=== PATIENT | male | born 2000 | race African-American/Black ===

== ENCOUNTER → 2018-10-12 | Outpatient (CLI) | payer BC | LOC: BMCIMAGING 15:11 | PROVIDERS: ATTEND Emergency Medicine | DX: J02.9 Acute pharyngitis, unspecified (principal); R59.1 Generalized enlarged lymph nodes | CPT/HCPCS: 76536-PO ==

== ENCOUNTER 2018-12-03 20:12 | Emergency (ER) | payer BC ==
[2018-12-03] MEDS ORDERED: KETOROLAC 30 MG/1 ML SDV IVP ONE (20:39)
[2018-12-03] MEDS ORDERED: NS 1,000 ML IV ONE ×2 (20:39)
[2018-12-03] MEDS ORDERED: DEXAMETHASONE 10 MG/ML VIAL IVP ONE (20:39)
--- NOTE | 2018-12-03 20:39 | EDPHY ---
H & P Stated Complaint: pt c/o back pain, fever, headache x 2 days Time Seen by Provider: 12/03/18 20:29 HPI/ROS: HPI: This is a 18-year-old male who presents with Chief Complaint: Body aches, fever Location: Body Quality: Aches, fever Duration: 2 3 days Signs and Symptoms: no fever, no nausea, no vomiting, no diarrhea, no urinary symptoms, no chest pain, no shortness of breath, no wheezing, no cough, no sore throat, no neck stiffness, no joint pain, no swollen glands, no ear pain, no rash Timing: Intermittent episodes Severity: [id number] Context: Patient is a student at [employer], presents accompanied by mother at her urging if she flew in from [place], [place] as patient has been "sick often on this entire semester and she is worried about finals next week." Patient complains of subjective fever and generalized body aches for the last 2-3 days. Denies sore throat, neck stiffness. Does complain of a generalized aching headache. 2nd complaint is related to his lower back which he has had problems with since high school, greater than 2 years, when he had a helmet directly impact his lumbar spine. He sees Orthopedics in [place] and had an x-ray performed over spring that "showed inflammation." He has a MRI scheduled when he returns home for the summer. He denies any change in bowel or bladder habits. Denies radiation, weakness, paresthesias. He does report increased pain with flexion and difficulty sitting for long periods of time in order to study. Received influenza vaccine in late 2018. Mom reports that he had viral upper respiratory infection at the beginning of school and bronchitis around [place]. Denies any urinary symptoms. Modifying Factors: [id number] pain medications Comment: ROS: A comprehensive 10 system review of systems is otherwise negative aside from elements mentioned in the history of present illness. MEDICAL/SURGICAL/SOCIAL HISTORY: Medical history: Generally healthy. Does not take any regular medications. Surgical history: Denies Social history: Student at [employer]. Originally from [place], [place]. Denies tobacco, alcohol, drug use. Family history noncontributory. CONSTITUTIONAL: Well-developed, well-nourished, nontoxic-appearing [place] young adult male, awake and alert, no obvious distress HEENT: Atraumatic and normocephalic, PERRL, EOMI. Nares patent; no rhinorrhea; no nasal mucosal edema. Tympanic membranes clear. Oropharynx clear, tonsils no hypertrophy, tonsils no erythema; white exudate noted on left pillar; and moist pink mucosa. Airway patent. No lymphadenopathy. No meningismus. Cardiovascular: Normal S1/S2, regular rate, regular rhythm, without murmur rub or gallop. PULMONARY/CHEST: Symmetrical and nontender. Clear to auscultation bilaterally. Good air movement. No accessory muscle usage. ABDOMEN: Soft, nondistended, nontender, no rebound, no guarding, no peritoneal signs, no masses or organomegaly. No CVAT. BACK: No midline tenderness, bilateral reproducible lumbar paraspinous multiple trigger-point reproducible tenderness; full range of motion of flexion , extension, bilateral rotation but there is mild pain associated. no paraspinous spasm, deep tendon reflexes 2/2, no pain with straight leg raise, No foot drop. Achilles reflexes are equal bilaterally. Able to walk on heels and toes without difficulty. EXTREMITIES: 2/2 pulses, strength 5/5, no deformities, no clubbing, no cyanosis or edema. NEUROLOGICAL: no focal neuro deficits. GCS 15. SKIN: Warm and dry, no erythema. no rash. Good capillary refill. Source: Patient, Family (Mother) Exam Limitations: No limitations - Personal History Current Tetanus Diphtheria and Acellular Pertussis (TDAP): Yes - Medical/Surgical History Hx Asthma: No Hx Chronic Respiratory Disease: No Hx Diabetes: No Hx Cardiac Disease: No Hx Renal Disease: No Hx Cirrhosis: No Hx Alcoholism: No Hx HIV/AIDS: No Hx Splenectomy or Spleen Trauma: No Other PMH: back injury in high school - Social History Smoking Status: Never smoked Constitutional: Initial Vital Signs Temperature (C) 37.2 C 12/03/18 20:16 Heart Rate 91 12/03/18 20:16 Respiratory Rate 18 12/03/18 20:16 Blood Pressure 112/62 12/03/18 20:16 O2 Sat (%) 96 12/03/18 20:16 O2 Delivery Mode Room Air Allergies/Adverse Reactions: No Known Allergies Allergy (Unverified 12/03/18 20:15) Home Medications: Medication Instructions Recorded Advil 12/03/18 Cyclobenzaprine [Flexeril 10 MG 10 mg PO Q8 PRN #12 tab 12/03/18 (*)] methylPREDNISolone [Medrol Dose 1 each PO AD #1 ea 12/03/18 George] Medical Decision Making ED Course/Re-evaluation: Vital signs reviewed and stable upon arrival. Nontoxic appearance and no systemic signs. IV access, laboratory studies ordered I do not believe that the back pain and fever are related. I suspect that there are 2 processes going on. Long discussion with mom and patient regarding images. I do not feel benefit of repeating lumbar sacral x-rays at this time and mom is agreeable. No neurological deficits to warrant emergent MRI in the emergency room. Mom wishes to have this performed when he returns to [place] in 2 weeks. Strep test ordered Given 2 L normal saline, IV Decadron 10 mg, IV Toradol 30 mg, IV Zofran 4 mg and IV Valium 5 mg 2105: Strep negative 2113: Laboratory studies reviewed. No signs of leukocytosis/anemia/SARAH/ elevated LFTs/electrolyte imbalance/infectious mononucleosis. Platelet count 144 K, BUN 12, creatinine 1.2 2229: Road test past. Patient reports moderate relief of symptoms. Discussed laboratory studies at bedside with patient and mother. Given a prescription for Medrol Dosepak and Flexeril. No signs of neurovascular compromise/tenting of skin/compartment syndrome/ extremities and joints examined above and below area of concern and are neurovascularly intact/cauda equina syndrome/saddle anesthesia. This patient was seen under the supervision of my secondary supervising physician. I evaluated and cared for this patient with attending. Differential Diagnosis: Adult fever including but not limited to viral syndromes including influenza, urinary tract infection, pneumonia and sepsis. - Data Points Laboratory Results: Laboratory Results 12/03/18 20:47 12/03/18 20:47 12/03/18 12/03/18 12/03/18 Unknown 20:47 20:47 WBC RBC Hgb Hct MCV MCH MCHC RDW Plt Count MPV Neut % (Auto) Lymph % (Auto) [place] % (Auto) Eos % (Auto) Baso % (Auto) Nucleat RBC Rel Count Absolute Neuts (auto) Absolute Lymphs (auto) Absolute Monos (auto) Absolute Eos (auto) Absolute Basos (auto) Absolute Nucleated RBC Immature Gran % Seg Neutrophils % Band Neutrophils % Lymphocytes % Monocytes % Eosinophils % Basophils % Metamyelocytes % Myelocytes % Promyelocytes % Blast Cells % Immature Gran # Absolute Seg Neuts Absolute Band Neuts Absolute Lymphocytes Absolute Monocytes Absolute Eosinophils Absolute Basophils Absolute Metamyelocyte Absolute Myelocytes Absolute Promyelocytes Absolute Plasma Cells Nucleated RBCs RBC/WBC/PLT Morphology Absolute Blast Cells Plasma Cells % Platelet Estimate Sodium 134 mEq/L L mEq/L (135-145) Potassium 3.6 mEq/L mEq/L (3.5-5.2) Chloride 101 mEq/L mEq/L (97-110) Carbon Dioxide 24 mEq/l mEq/l (22-31) Anion Gap 9 mEq/L mEq/L (6-14) BUN 12 mg/dL mg/dL (7-23) Creatinine 1.2 mg/dL mg/dL (0.7-1.3) Estimated GFR > 60 Glucose 90 mg/dL mg/dL (70-100) Calcium 8.5 mg/dL mg/dL (8.5-10.4) Total Bilirubin 1.0 mg/dL mg/dL (0.1-1.4) Conjugated Bilirubin 0.2 mg/dL mg/dL (0.0-0.5) Unconjugated Bilirubin 0.8 mg/dL mg/dL (0.0-1.1) AST 39 IU/L IU/L (17-59) ALT 37 IU/L IU/L (21-72) Alkaline Phosphatase 61 IU/L IU/L (38-126) Total Protein 6.9 g/dL g/dL (6.3-8.2) Albumin 3.9 g/dL g/dL (3.5-5.0) Monoscreen NEGATIVE (NEGATIVE) Group A Strep Screen Group A Strep DNA Pending 12/03/18 12/03/18 20:47 20:35 WBC 6.19 10^3/uL 10^3/uL (3.80-9.50) RBC 4.78 10^6/uL 10^6/uL (4.40-6.38) Hgb 14.8 g/dL g/dL (13.7-17.5) Hct 41.2 % % (40.0-51.0) MCV 86.2 fL fL (81.5-99.8) MCH 31.0 pg pg (27.9-34.1) MCHC 35.9 g/dL g/dL (32.4-36.7) RDW 12.5 % % (11.5-15.2) Plt Count 144 10^3/uL L 10^3/uL (150-400) MPV 9.6 fL fL (8.7-11.7) Neut % (Auto) Not Reported Lymph % (Auto) Not Reported [place] % (Auto) Not Reported Eos % (Auto) Not Reported Baso % (Auto) Not Reported Nucleat RBC Rel Count Not Reported Absolute Neuts (auto) Not Reported Absolute Lymphs (auto) Not Reported Absolute Monos (auto) Not Reported Absolute Eos (auto) Not Reported Absolute Basos (auto) Not Reported Absolute Nucleated RBC Not Reported Immature Gran % Not Reported Seg Neutrophils % 70.0 % % Band Neutrophils % 7.0 % % Lymphocytes % 14.0 % % Monocytes % 7.0 % % Eosinophils % 0.0 % % Basophils % 0.0 % % Metamyelocytes % 1.0 % % Myelocytes % 1.0 % % Promyelocytes % 0.0 % % Blast Cells % 0.0 % % Immature Gran # Not Reported Absolute Seg Neuts 4.33 10^3/uL 10^3/uL (1.70-6.50) Absolute Band Neuts 0.43 10^3/uL 10^3/uL (0.00-0.70) Absolute Lymphocytes 0.87 10^3/uL L 10^3/uL (1.00-3.00) Absolute Monocytes 0.43 10^3/uL 10^3/uL (0.30-0.80) Absolute Eosinophils 0.00 10^3/uL L 10^3/uL (0.03-0.40) Absolute Basophils 0.00 10^3/uL L 10^3/uL (0.02-0.10) Absolute Metamyelocyte 0.06 10^3/mL H 10^3/mL (0.00-0.00) Absolute Myelocytes 0.06 10^3/mL H 10^3/mL (0.00-0.00) Absolute Promyelocytes 0.00 10^3/uL 10^3/uL (0.00-0.00) Absolute Plasma Cells 0.00 10^3/uL 10^3/uL (0.00-0.00) Nucleated RBCs 0 /100 WBC /100 WBC (0-0) RBC/WBC/PLT Morphology NORMAL (NORMAL) Absolute Blast Cells 0.00 10^3/uL 10^3/uL (0.00-0.00) Plasma Cells % 0.0 % % Platelet Estimate ADEQUATE (ADEQ) Sodium Potassium Chloride Carbon Dioxide Anion Gap BUN Creatinine Estimated GFR Glucose Calcium Total Bilirubin Conjugated Bilirubin Unconjugated Bilirubin AST ALT Alkaline Phosphatase Total Protein Albumin Monoscreen Group A Strep Screen NEGATIVE (NEGATIVE) Group A Strep DNA Medications Given: Discontinued Medications Dexamethasone (Decadron Injection) 10 mg IVP EDNOW ONE Stop: 12/03/18 20:40 Last Admin: 12/03/18 20:48 Dose: 10 mg Diazepam (Valium) 5 mg IVP EDNOW ONE Stop: 12/03/18 21:29 Last Admin: 12/03/18 21:33 Dose: 5 mg Sodium Chloride (Ns) 1,000 mls @ 0 mls/hr IV ONCE ONE; Wide Open PRN Reason: Protocol Stop: 12/03/18 20:40 Last Admin: 12/03/18 20:47 Dose: 1,000 mls Sodium Chloride (Ns) 1,000 mls @ 0 mls/hr IV ONCE ONE; Wide Open PRN Reason: Protocol Stop: 12/03/18 20:40 Last Admin: 12/03/18 20:48 Dose: 1,000 mls Ketorolac Tromethamine (Toradol) 30 mg IVP EDNOW ONE Stop: 12/03/18 20:40 Last Admin: 12/03/18 20:48 Dose: 30 mg Ondansetron HCl (Zofran) 4 mg IVP EDNOW ONE Stop: 12/03/18 21:30 Last Admin: 12/03/18 21:33 Dose: 4 mg Departure - Departure Disposition: Home, Routine, Self-Care Clinical Impression: Viral syndrome Chronic lumbar pain Qualifiers: Back pain laterality: bilateral Sciatica presence: without sciatica Qualified Code(s): M54.5 - Low back pain Condition: Good Instructions: Low Back Strain (ED), Viral Syndrome (ED) Additional Instructions: Rest as much as possible until you are feeling better. Consume a minimum of 8-10 glasses of water or electrolyte fluid replacement drinks that include Gatorade, Powerade, Pedialyte. Eat a bland diet for the next 48 hours and then slowly advance as tolerated. Take Medrol Dosepak as directed. Take Flexeril every 8 hr as needed for muscle spasms. Take Tylenol 650 mg every 4 hours and/or Ibuprofen 600 mg every 8 hours with food as needed for pain. Referrals: [facility]SH[facility] Barnard,. [Clinic] - As per Instructions Stand Alone Forms: School Excuse Prescriptions: Cyclobenzaprine [Flexeril 10 MG (*)] 10 mg PO Q8 PRN #12 tab PRN Reason: Spasms methylPREDNISolone [Medrol Dose George] 1 each PO AD #1 ea
[2018-12-03 20:56] LABS: PLATELET COUNT 144 10^3/uL (150-400)
[2018-12-03] MEDS ORDERED: DIAZEPAM 10 MG/2 ML SYR IVP ONE (21:28)
[2018-12-03] MEDS ORDERED: ONDANSETRON 4 MG/2 ML VIAL IVP ONE (21:29)
[2018-12-03 22:32] VITALS: BP 107/80
== END 2018-12-03 22:39 | disposition home or self-care (01) ==
DX: M54.5 Low back pain (principal); R50.9 Fever, unspecified; E86.9 Volume depletion, unspecified
CPT/HCPCS: 96374; J1100; J1885; J2405; J3360